=== PATIENT | male | born 1960 | race Hispanic/Latino ===

== ENCOUNTER → 2024-01-24 | Outpatient (CLI) | payer OTHER | LOC: BICRAD 09:02 | PROVIDERS: ATTEND Family Medicine | DX: R10.31 Right lower quadrant pain (principal); M16.11 Unilateral primary osteoarthritis, right hip ==

== ENCOUNTER 2024-02-16 07:09 | Outpatient (CLI) | payer OTHER | END 2024-02-16 07:10 | disposition home or self-care (01) | LOC: BICULT 07:09 | PROVIDERS: ATTEND Family Medicine | DX: R35.0 Frequency of micturition (principal); N40.0 Benign prostatic hyperplasia without lower urinary tract symptoms; N32.89 Other specified disorders of bladder | CPT/HCPCS: 76770 ==

== ENCOUNTER 2024-10-06 17:44 | Emergency (ER) | payer OTHER ==
[~2024-10-06 17:44] MED LIST: Iopamidol 370 76% 100 ML VIAL ONE
[2024-10-06 18:26] LABS: #Basophils 0.04 10x3/uL (0.0-0.2); #Eosinophils 0.07 10x3/uL (0.0-0.7); #Monocytes 0.84 10x3/uL (0.11-0.59); #Neutrophils 8.81 10x3/uL (1.40-6.50); %Basophils 0.4 % (0.0-1.0); %Eosinophils 0.6 % (0.0-10.0); %Lymphocytes 10.7 % (21.0-51.0); %Monocytes 7.7 % (0.0-10.0); %Neutrophils 80.2 % (42.0-75.0); Hematocrit 41.4 % (42.0-52.0); Hemoglobin 14.1 g/dL (14.0-18.0); Mean Corpuscular Hemoglobin 30.8 pg (27.0-31.0); Mean Corpuscular Volume 90.4 fL (78.0-98.0); Platelet Count 288 10x3/uL (130-400); Red Blood Cell (RBC) Count 4.58 mill/uL (4.70-6.10); White Blood Cell (WBC) Count 10.98 10x3/uL (4.8-10.8)
[2024-10-06 18:40] LABS: INR-International Normal Ratio 1.1; PTT 26.9 sec (22.9-36.1); Prothrombin Time 14.1 sec (12.0-14.7)
[2024-10-06 18:44] LABS: ALT (SGPT) 25 U/L (Less than 45); AST (SGOT) 43 U/L (11-34); Albumin 4.3 g/dL (3.1-4.5); Alkaline Phosphatase 83 U/L (40-110); Anion Gap 15 mmol/L (10-20); BUN (Urea Nitrogen) 30 mg/dL (8.4-25.7); Bilirubin, Total 0.4 mg/dL (0.3-1.2); Calc. Creatinine Clearance 0 mL/min (70-130); Calcium 9.2 mg/dL (7.8-10.44); Carbon Dioxide 22 mmol/L (23-31); Chloride 104 mmol/L (98-107); Globulin 3.2 g/dL (2.4-3.5); Glucose 105 mg/dL (80-115); Potassium 4.0 mmol/L (3.5-5.1); Sodium 137 mmol/L (136-145)
[2024-10-06 18:49] LABS: Troponin I Less than 0.010 ng/mL (< 0.028)
[2024-10-06] MEDS ORDERED: Acetaminophen 500 MG TAB ONE (19:10)
== END 2024-10-06 19:23 | disposition home or self-care (01) ==
LOC: ERS 17:44
DX: S20.212A Contusion of left front wall of thorax, initial encounter (principal); Z55.6 Problems related to health literacy; Z79.899 Other long term (current) drug therapy; V49.40XA Driver injured in collision with unspecified motor vehicles in traffic accident, initial encounter; Y92.410 Unspecified street and highway as the place of occurrence of the external cause
CPT/HCPCS: 36415; 70450; 70498; 71260; 72125; 74177; 80053; 84484; 85025; 85610; 85730; 93005; Q9967

== ENCOUNTER 2024-12-30 10:30 | Outpatient (CLI) | payer OTHER ==
[2024-12-30 11:49] LABS: Estimated GFR - POC 75.0
== END 2024-12-30 10:31 | disposition home or self-care (01) ==
LOC: SCSMRI 10:30
PROVIDERS: ATTEND Urology
DX: R97.20 Elevated prostate specific antigen [PSA] (principal); Z98.890 Other specified postprocedural states
CPT/HCPCS: 36415; 72197; 82565